=== PATIENT | male | born 1965 | race Caucasian/White ===

== ENCOUNTER → 2021-07-19 | Outpatient (CLI) | payer BC | END | disposition home or self-care (01) | LOC: MRI 10:47 | PROVIDERS: ATTEND Psychiatry & Neurology Neurology | DX: G93.89 Other specified disorders of brain (principal); R40.0 Somnolence; R55 Syncope and collapse; G90.9 Disorder of the autonomic nervous system, unspecified | CPT/HCPCS: 70551 ==

== ENCOUNTER → 2021-07-26 | Outpatient (CLI) | payer BC ==
[~2021-07-26] MED LIST: GADOTERATE MEGLUMINE 5 MMOL/10 ML VIAL IV ONE
== END | disposition home or self-care (01) ==
LOC: MRI 10:42
PROVIDERS: ATTEND Psychiatry & Neurology Neurology
DX: G90.9 Disorder of the autonomic nervous system, unspecified (principal)
CPT/HCPCS: 70552; A9577